=== PATIENT | female | born 1960 | race Caucasian/White ===

== ENCOUNTER 2019-07-20 22:05 | Inpatient (IN) ==
[2019-07-20] MEDS ORDERED: NS 1000 ML 1,000 ML IV SCH (23:45)
--- NOTE | 2019-07-20 23:52 | DR.HI ---
HPI - Time Seen Time seen: 23:48 - PCP Primary Care Physician: MENDY - HPI Comment HPI Comment: Patient states she has been falling all day. States she gets swimmy headed and her knees get weak and gives away and she falls. States she fell on her knees today around 5 pm 6-7 hours ago and hit the back of her head. She denies lOC or any seizure activity today but she has a history of seizures and was in the hospital in [place] two months ago. She has had stents placed in [place] by Dr. Moreno in 2019. She smokes one pack cigarettes daily and denies alcohol or tobacco use. State she feel like she has dizziness and feel clammy and fells like her blood pressure drops out before she falls. states she took her blood pressure before an episode of falling and it was 77/44. States she tried to talk with Dr. Mendy MENDOZA but they always give her another pill. She is out of her Keppra and when she went for a refill they told her she did not need it anymore.. states she has problems with anxiety and stress. Family states she fell earlier today when a family member was helping her walk and her legs gave out and she fell. - Complaint Chief Complaint:: PT VALENTINA STATED PT HAS BEEN FALLEN TWICE TODAY WITHOUT NOTICE. WHEN FALLEN PT STATED SHE HIT HER HEAD ON CEMENT DURING THE FALL. PT C/O HEADACHE AND BACK PAIN. - Reviewed Nurses Notes Review: Yes - Source History Provided: Patient - Mode of arrival Mode of Arrival: Wheelchair - Timing Onset of Chief Complaint: 07/20/19 - Context Mechanism:: Fall Symptoms:: Confusion History of:: None Last tetanus: Unknown Prehospital Care:: None - Severity Pain Severity: Mild - Location Location: Occipatal - Associated signs and symptoms Associated signs and symptoms: None PMH - PMH Past Medical History: Yes Past Medical History: Anxiety, Hypertension Past Surgical History: Yes Surgical History: Cholecystectomy Past Surgical History Comment: HEART STENT, BREAST AUGEMENTATION AND CARPEL TUNNEL SURGERY BILATERAL WRIST. - Family History History of Family Medical Conditions: No - Social History Does patient currently use any type of tobacco product: Yes Have you used tobacco products in the last 12 months: Yes Type of Tobacco Use: Cigarettes Does any household member use tobacco: Yes Alcohol Use: None Do you use any recreational Drugs:: No Lives With: Family Lives Where: Home - infectious screening In the last 2 months have you had wt loss of >10#?: NO Have you had fever, night sweats or hemotysis?: No Have you traveled outside the country in the last 6 months?: No Isolation: Standard ROS - Review of Systems Constitutional: No Symptoms Reported Eyes: No Symptoms Reported ENTM: No Symptoms Reported Respiratoy: No Symptoms Reported Cardiovascular: No Symptoms Reported. negative: See HPI, Chest Pain, Edema, Palpitations, Syncope, Cyanosis, Skin Mottling, Other Gastrointestinal/Abdominal: No Symptoms Reported Genitourinary: No Symptoms Reported Neurological: No Symptoms Reported, Seizure, Problems Walking (legs give way when she walks) Musculoskeletal: No Symptoms Reported Integumentary: No Symptoms Reported Hematologic/Lymphatic: No Symptoms Reported Endocrine: No Symptoms Reported Psychiatric: No Symptoms Reported. negative: See HPI, Anxiety, Depression, Hallucinations, Excessive crying, Suicidal, Other PE - General Limitations: No Limitations General Appearance: Alert, In Distress (slight) - Head Head Exam: Normal Inspection, Atraumatic, Normocephalic Head Exam Physical: negative: Laceration, Abrasion, Contusion, Hematoma, Raccoon Eyes, Batron's Sign, Tenderness of Temporal Artery, CSF Rhinorrhea, CSF Otorrhea, Other - Eyes Eye exam: Normal Appearance, PERRL, EOMI. negative: Scleral Icterus, Conjuncti stanislaw Injection, Nystagmus, Miosis, Mydrasis, Periorbital Swelling, Periorbital Tenderness, Other Eyelids: Normal Inspection: Bilateral Pupils: Regular, Round: Bilateral Sclera/Conjunctival: Normal Inspection: Bilateral - ENT ENT Exam: Normal Exam, Normal Oropharynx, Normal External Ear Exam, Mucous Membranes Moist, TM's Normal Bilaterally Nose Exam: Normal Nose Exam Mouth Exam: Normal Inspection - Neck Neck Exam: Normal Inspection, Full ROM, Trachea Midline - Respiratory Respiratory Exam: Normal Lung Sounds Bilat Respiratory Exam: Bilateral Clear to Auscultation - Cardiovascular Cardiovascular Exam: Regular Rate, Normal Rhythm, Normal Heart Sounds - Abdominal Exam Abdominal Exam: Normal Inspection, Normal Bowel Sounds, Soft. negative: Distention, Tenderness, Guarding, Rebound, Rigidity, Dimnished Bowel Sounds, Hyperactive Bowel Sounds, Hypoactive Bowel Sounds, Organomegaly, Trauma, Incision, Ascites, Mass, Bruit, Pulsatile Mass, Hernia, Other Abdominal Tenderness: negative: RUQ, RLQ, LUQ, LLQ, Epigastrium, Suprapubic, Diffuse, Mild, Moderate, Severe, Other - Extremities Extremities Exam: Normal Inspection, Full ROM, Tenderness (right knee tender), Normal Capillary Refill - Back Back Exam: Normal Inspection, Full ROM - Neurologic Neurological Exam: Alert, Oriented X3, CN II-XII Intact, Reflexes Normal. negative: Normal Gait (gait not tested) - Psychiatric Psychiatric Exam: Normal Affect, Normal Mood - Skin Skin Exam: Warm, Dry, Intact, Normal Color Type of Lesion: negative: Rash, Abscess, Laceration, Foreign Body, Bite/Sting, Abrasion, Other Distribution: negative: Generalized, Involves Palms/Soles, Head, Face, Neck, Thorax, Chest, Back, Abdomen, Genitals, LUE, LLE, RUE, RLE, Other Description: negative: Size, Tenderness, Erythematous, Swelling, Macular, Papular, Vesicular, Blisters, Cofluent, Bullous, Petechial, Purpuric, Urti carial, Crusting, Discharge, Fluctuant, Indurated, Other - Vital Signs Vitals: Temperature 97.9 F Pulse Rate 67 Respiratory Rate 20 Blood Pressure 122/62 O2 Sat by Pulse Oximetry 96 Course - Consultation Called: 01:59 Call Returned: 01:59 (Dr. Dunlap to admit. [facility] give Lovenox.) - Education/Counseling Education/Counseling: Patient, Family Educated On: Treatment, Diagnosis, Needs for Follow Up ROR - Labs Reviewed Laboratory Results Reviewed?: Yes (All labs and x-ray results reviewed and discussed with patient and family) Result Diagrams: 07/21/19 00:05 07/21/19 00:05 - XRAY XRAY Interpreted by: Radiologist (CT head: No acute intracranial abnormality) XRAY Findings: CT lumbar spine: No acute osseous abnormality of the lumbar spine. - EKG Rate: 70 [place]: Normal Rhythm: NSR Block: None Hypertrophy: None ST: Old, Ant, Infarct, Nonsp - Labs Reviewed Laboratory: WBC 13.5 X10^3/uL (3.6-10.0) H 07/21/19 00:05 RBC 3.59 X10^6/uL (3.5-5.4) 07/21/19 00:05 Hgb 10.6 g/dL (12.0-16.0) L 07/21/19 00:05 Hct 30.9 % (36.0-47.0) L 07/21/19 00:05 MCV 86.2 fL (80.0-100.0) 07/21/19 00:05 MCH 29.7 pg (27.0-34.0) 07/21/19 00:05 MCHC 34.4 g/dL (33.0-35.0) 07/21/19 00:05 RDW 14.6 % (11.6-16.5) 07/21/19 00:05 Plt Count 384 X10^3/uL (150.0-450.0) 07/21/19 00:05 MPV 7.0 fL (7.4-11.0) L 07/21/19 00:05 Neut % (Auto) 82.0 % (42.0-75.0) H 07/21/19 00:05 Lymph % (Auto) 9.5 % (21.0-51.0) L 07/21/19 00:05 [place] % (Auto) 4.3 % (0.0-13.0) 07/21/19 00:05 Eos % (Auto) 4.0 % (0.9-2.9) H 07/21/19 00:05 Baso % (Auto) 0.2 % (0.2-1.0) 07/21/19 00:05 Neut # (Auto) 11.1 x10^3/uL (2.2-4.8) H 07/21/19 00:05 Lymph # (Auto) 1.3 X10^3/uL (1.3-2.9) 07/21/19 00:05 [place] # (Auto) 0.6 x10^3/uL (0.3-0.8) 07/21/19 00:05 Eos # (Auto) 0.5 x10^3/uL (0.0-0.2) H 07/21/19 00:05 Baso # (Auto) 0.0 X10^3/uL (0.0-0.1) 07/21/19 00:05 Absolute Nucleated RBC 0.0 /100WBC 07/21/19 00:05 PT 12.7 SECONDS (11.8-14.3) 07/21/19 00:05 INR Target Range - 07/21/19 00:05 INR 0.99 (0.8-1.3) 07/21/19 00:05 APTT 38.2 SECONDS (22.9-36.5) H 07/21/19 00:05 PTT Comment - 07/21/19 00:05 D-Dimer 508 ng/mL (0-400) H* 07/21/19 00:05 Sodium 126 mmol/L (136-145) L 07/21/19 00:05 Corrected Sodium TNP 07/21/19 00:05 Potassium 2.6 mmol/L (3.5-5.1) L* 07/21/19 00:05 Chloride 87 mmol/L (98-107) L 07/21/19 00:05 Carbon Dioxide 28.4 mmol/L (21-32) 07/21/19 00:05 BUN 22 mg/dL (7-18) H 07/21/19 00:05 Creatinine 1.42 mg/dL (0.55-1.02) H 07/21/19 00:05 Est GFR (MDRD) Af Amer 49 (>60) L 07/21/19 00:05 Est GFR (MDRD) Non-Af 40 (>60) L 07/21/19 00:05 Glucose 110 mg/dL (65-99) H 07/21/19 00:05 Calcium 8.8 mg/dL (8.5-10.1) 07/21/19 00:05 Corrected Calcium TNP 07/21/19 00:05 Magnesium 1.8 mg/dL (1.7-2.9) 07/21/19 00:05 Total Bilirubin 0.40 mg/dL (0.2-1.0) 07/21/19 00:05 AST 17 Units/L (15-37) 07/21/19 00:05 ALT 14 Units/L (12-78) 07/21/19 00:05 Alkaline Phosphatase 145 Units/L (46-116) H 07/21/19 00:05 Creatine Kinase 79 Units/L (26-192) 07/21/19 00:05 CK-MB (CK-2) < 1.0 ng/mL (0-4.0) 07/21/19 00:05 CK/CKMB % Calc 1.3 % (<4) 07/21/19 00:05 Troponin I < 0.02 ng/mL (0-1.5) 07/21/19 00:05 Total Protein 7.8 g/dL (6.4-8.2) 07/21/19 00:05 Albumin 3.5 g/dL (3.4-5.0) 07/21/19 00:05 Globulin 4.3 g/dL (2.5-4.5) 07/21/19 00:05 Albumin/Globulin Ratio 0.8 Ratio (1.1-2.1) L 07/21/19 00:05 Opioid - Opioid Risk Tool Total: 0 Total Score Risk Category: Low Risk - Diagnosis Discharge Problem: Hypokalemia, Hyponatremia, Syncope and collapse, Dehydration Fall at home Qualifiers: Encounter type: initial encounter Qualified Code(s): W19.XXXA - Unspecified fall, initial encounter Altered mental state Qualifiers: Altered mental status type: unspecified Qualified Code(s): R41.82 - Altered mental status, unspecified Chronic kidney disease (CKD) Qualifiers: Chronic kidney disease stage: stage 3 (moderate) Qualified Code(s): N18.3 - Chronic kidney disease, stage 3 (moderate) - Discharge Plan Disposition: ADMITTED INPATIENT Condition: Stable - Follow ups/Referrals Follow ups/Referrals: PATRICK BROOKE [Primary Care Provider] - 3 days - Instructions
[2019-07-21 00:21] LABS: BASOPHILS % (AUTO) 0.2 % (0.2-1.0); EOSINOPHILS # (AUTO) 0.5 x10^3/uL (0.0-0.2); HEMATOCRIT 30.9 % (36.0-47.0); HEMOGLOBIN 10.6 g/dL (12.0-16.0); LYMPHOCYTES # (AUTO) 1.3 X10^3/uL (1.3-2.9); LYMPHOCYTES % (AUTO) 9.5 % (21.0-51.0); MEAN CORPUSCULAR HEMOGLOBIN 29.7 pg (27.0-34.0); MEAN CORPUSCULAR HGB CONC 34.4 g/dL (33.0-35.0); MEAN CORPUSCULAR VOLUME 86.2 fL (80.0-100.0); MONOCYTES # (AUTO) 0.6 x10^3/uL (0.3-0.8); MONOCYTES % (AUTO) 4.3 % (0.0-13.0); NEUTROPHILS # (AUTO) 11.1 x10^3/uL (2.2-4.8); PLATELET COUNT 384 X10^3/uL (150.0-450.0); RED BLOOD COUNT 3.59 X10^6/uL (3.5-5.4); RED CELL DISTRIBUTION WIDTH 14.6 % (11.6-16.5); WHITE BLOOD COUNT 13.5 X10^3/uL (3.6-10.0)
[2019-07-21 00:35] LABS: ALANINE AMINOTRANSFERASE 14 Units/L (12-78); ALBUMIN 3.5 g/dL (3.4-5.0); ALKALINE PHOSPHATASE 145 Units/L (46-116); ASPARTATE AMINO TRANSFERASE 17 Units/L (15-37); BLOOD UREA NITROGEN 22 mg/dL (7-18); CALCIUM 8.8 mg/dL (8.5-10.1); CARBON DIOXIDE 28.4 mmol/L (21-32); CHLORIDE 87 mmol/L (98-107); CKMB % 1.3 % (<4); CREATINE KINASE 79 Units/L (26-192); CREATINE KINASE MB < 1.0 ng/mL (0-4.0); CREATININE 1.42 mg/dL (0.55-1.02); MAGNESIUM 1.8 mg/dL (1.7-2.9); SODIUM 126 mmol/L (136-145); TOTAL PROTEIN 7.8 g/dL (6.4-8.2); TROPONIN I < 0.02 ng/mL (0-1.5); eGFR NON BLACK RACES 40 (>60)
--- NOTE | 2019-07-21 00:40 | CT ---
CT head without contrast Indication: Fall, headache Comparison: None Technique: CT images of the head were obtained without contrast. Automatic exposure control was utilized. Findings: The study is mildly motion degraded. There is no acute bleed, mass effect, or abnormal extra-axial collection. The ventricles are symmetric and nondilated. No acute calvarial fracture identified. The visualized paranasal sinuses and mastoid air cells are clear. Impression: No acute intracranial abnormality. Reported By:
--- NOTE | 2019-07-21 00:41 | CT ---
CT lumbar spine without contrast Indication: Fall, back pain Comparison: None Technique: CT images of the lumbar spine were obtained without contrast. Automatic exposure control was utilized. Findings: There is minimal anterolisthesis of L3 on L4. The spine alignment is otherwise normal. There is multilevel discogenic and facet degenerative change. There is posterior disc bulge at L3-4 and L4-5, contributing to moderate spinal canal narrowing. No acute fracture or subluxation identified. The paraspinous soft tissues are grossly unremarkable. Impression: No acute osseous abnormality of the lumbar spine. Multilevel spine degenerative change. Moderate spinal canal narrowing at L3-4 and L4-5. Reported By:
[2019-07-21] MEDS ORDERED: NS 1000 ML 1,000 ML IV ONE (00:43)
--- NOTE | 2019-07-21 00:56 | RAD ---
Chest, 1 view Indication: Fall Comparison: None Findings: The cardiac and mediastinal contours are within normal limits. The lungs are grossly clear without focal infiltrates or pleural effusion. No pneumothorax identified. No displaced fracture. Impression: No acute chest process. Reported By:
[2019-07-21] MEDS: K-LYTE EFFERVESCENT PO SCH ×2 (01:10→13:16)
[2019-07-21] MEDS ORDERED: MORPHINE SULFATE INJ 2 MG INJ IVP ONE (01:36)
[2019-07-21] MEDS ORDERED: ZOFRAN INJ 4 MG VIAL IVP ONE (01:37)
[2019-07-21] MEDS ORDERED: LOVENOX INJ 80 MG SYR SC STA (01:37)
[2019-07-21] MEDS ORDERED: LOVENOX INJ 80 MG SYR SC ONE (02:15)
[2019-07-21] MEDS ORDERED: MORPHINE SULFATE INJ 2 MG INJ ONE (02:16)
[2019-07-21] MEDS ORDERED: ZOFRAN INJ 4 MG VIAL ONE (02:17)
[2019-07-21 04:22] VITALS: BMI 33.5
[2019-07-21 06:52] LABS: BASOPHILS % (AUTO) 0.5 % (0.2-1.0); EOSINOPHILS # (AUTO) 0.6 x10^3/uL (0.0-0.2); EOSINOPHILS % (AUTO) 5.9 % (0.9-2.9); HEMATOCRIT 29.4 % (36.0-47.0); HEMOGLOBIN 10.3 g/dL (12.0-16.0); LYMPHOCYTES # (AUTO) 1.4 X10^3/uL (1.3-2.9); LYMPHOCYTES % (AUTO) 13.9 % (21.0-51.0); MEAN CORPUSCULAR HEMOGLOBIN 30.1 pg (27.0-34.0); MEAN CORPUSCULAR HGB CONC 35.2 g/dL (33.0-35.0); MEAN CORPUSCULAR VOLUME 85.3 fL (80.0-100.0); MEAN PLATELET VOLUME 6.6 fL (7.4-11.0); MONOCYTES # (AUTO) 0.4 x10^3/uL (0.3-0.8); MONOCYTES % (AUTO) 4.2 % (0.0-13.0); NEUTROPHILS # (AUTO) 7.6 x10^3/uL (2.2-4.8); NEUTROPHILS % (AUTO) 75.5 % (42.0-75.0); PLATELET COUNT 378 X10^3/uL (150.0-450.0); RED BLOOD COUNT 3.44 X10^6/uL (3.5-5.4); RED CELL DISTRIBUTION WIDTH 14.5 % (11.6-16.5)
[2019-07-21 07:06] LABS: CHOL/HDL RATIO 2.9 (0.0-5.0)
[2019-07-21 07:08] LABS: ALANINE AMINOTRANSFERASE 13 Units/L (12-78); ALKALINE PHOSPHATASE 127 Units/L (46-116); ASPARTATE AMINO TRANSFERASE 17 Units/L (15-37); BLOOD UREA NITROGEN 18 mg/dL (7-18); CALCIUM 8.5 mg/dL (8.5-10.1); CARBON DIOXIDE 28.6 mmol/L (21-32); CHLORIDE 92 mmol/L (98-107); COR CA(FOR HYPOALB) 9.3 mg/dL (8.5-10.1); SODIUM 130 mmol/L (136-145); TOTAL PROTEIN 6.8 g/dL (6.4-8.2); eGFR NON BLACK RACES 54 (>60)
[2019-07-21] MEDS: NS + KCL 20 MEQ/L 1,000 ML IV SCH ×3 (09:45→19:15)
[2019-07-21] MEDS ORDERED: NORCO 10/325 TAB PO PRN (11:34)
[2019-07-21] MEDS ORDERED: NORCO 10/325 TAB ONE (11:36)
--- NOTE | 2019-07-21 11:47 | DR.H&P ---
H&P History & Physical for Day of: H&P Date: 07/21/19 Chief Complaint Chief Complaint: Recurrent falls, Syncope Allergies Allergies Allergy/AdvReac Type Severity Reaction Status Date / Time ketorolac [From Toradol] Allergy Verified 07/20/19 22:32 History of Present Illness History of Present Illness: Pt is a 58 yo f w/ hx of recurrent falls and syncopal episodes for the past 2 months. Reports episodes are during activity. She will start feeling "swimmy headed" and her knees get weak and gives away. Yesterday she she fell on her knees and hit the back of her head. Denied LOC or any seizure activity, however reports recently started on seizure medication last 2 months ago at [facility] for similar event but was discontinued by her pcp. Per ED, pt took her blood pressure medication shortly before episode and was hypotensive. Denies incontinence or seizure like activity during event. Past Medical History Past Medical History: Anxiety and Hypertension Past Surgical History Surgical History: Angioplasty/Stents, Cholecystectomy and Other Family History Family Medical History: [place], Coronary Artery Disease and Hypertension Social History Does patient currently use any type of tobacco product: Yes Have you used tobacco products in the last 12 months: Yes Type of Tobacco Use: Cigarettes How many years tobacco product used: 39 Does any household member use tobacco: No Alcohol Use: None Drug Use: None Medications Home Medications: ketorolac [From Toradol] Allergy (Verified 07/20/19 22:32) CONTINUE taking the following medications aspirin [Aspir-81] 81 mg PO DAILY 07/20/19 [History] bupropion HCl [Wellbutrin SR] 150 mg PO BID 07/20/19 [History] cyclobenzaprine 10 mg PO PRN PRN 07/20/19 [History] doxepin 50 mg PO PRN PRN 07/20/19 [History] esomeprazole magnesium 40 mg PO DAILY 07/20/19 [History] gabapentin 800 mg PO TID 07/20/19 [History] hydrochlorothiazide 25 mg PO DAILY 07/20/19 [History] hydrocodone-acetaminophen [[place]] 1 tab PO QID 07/20/19 [History] hydroxyzine HCl 25 mg PO TID 07/20/19 [History] levetiracetam 750 mg PO BID 07/20/19 [History] loratadine 10 mg PO DAILY 07/20/19 [History] losartan 50 mg PO DAILY 07/20/19 [History] meclizine 25 mg PO TID 07/20/19 [History] promethazine 25 mg PO BID 07/20/19 [History] sertraline 50 mg PO DAILY 07/20/19 [History] simvastatin 20 mg PO HS 07/20/19 [History] ticagrelor [Brilinta] 90 mg PO DAILY 07/20/19 [History] vitamin E 400 unit PO DAILY 07/20/19 [History] Labs Result Diagrams: 07/21/19 06:34 07/21/19 06:34 Labs: Laboratory WBC 10.0 X10^3/uL (3.6-10.0) 07/21/19 06:34 RBC 3.44 X10^6/uL (3.5-5.4) L 07/21/19 06:34 Hgb 10.3 g/dL (12.0-16.0) L 07/21/19 06:34 Hct 29.4 % (36.0-47.0) L 07/21/19 06:34 MCV 85.3 fL (80.0-100.0) 07/21/19 06:34 MCH 30.1 pg (27.0-34.0) 07/21/19 06:34 MCHC 35.2 g/dL (33.0-35.0) H 07/21/19 06:34 RDW 14.5 % (11.6-16.5) 07/21/19 06:34 Plt Count 378 X10^3/uL (150.0-450.0) 07/21/19 06:34 MPV 6.6 fL (7.4-11.0) L 07/21/19 06:34 Neut % (Auto) 75.5 % (42.0-75.0) H 07/21/19 06:34 Lymph % (Auto) 13.9 % (21.0-51.0) L 07/21/19 06:34 [place] % (Auto) 4.2 % (0.0-13.0) 07/21/19 06:34 Eos % (Auto) 5.9 % (0.9-2.9) H 07/21/19 06:34 Baso % (Auto) 0.5 % (0.2-1.0) 07/21/19 06:34 Neut # (Auto) 7.6 x10^3/uL (2.2-4.8) H 07/21/19 06:34 Lymph # (Auto) 1.4 X10^3/uL (1.3-2.9) 07/21/19 06:34 [place] # (Auto) 0.4 x10^3/uL (0.3-0.8) 07/21/19 06:34 Eos # (Auto) 0.6 x10^3/uL (0.0-0.2) H 07/21/19 06:34 Baso # (Auto) 0.0 X10^3/uL (0.0-0.1) 07/21/19 06:34 Absolute Nucleated RBC 0.0 /100WBC 07/21/19 06:34 PT 12.7 SECONDS (11.8-14.3) 07/21/19 00:05 INR Target Range - 07/21/19 00:05 INR 0.99 (0.8-1.3) 07/21/19 00:05 APTT 38.2 SECONDS (22.9-36.5) H 07/21/19 00:05 PTT Comment - 07/21/19 00:05 D-Dimer 508 ng/mL (0-400) H* 07/21/19 00:05 Sodium 130 mmol/L (136-145) L 07/21/19 06:34 Corrected Sodium TNP 07/21/19 06:34 Potassium 3.0 mmol/L (3.5-5.1) L* 07/21/19 06:34 Chloride 92 mmol/L (98-107) L 07/21/19 06:34 Carbon Dioxide 28.6 mmol/L (21-32) 07/21/19 06:34 BUN 18 mg/dL (7-18) 07/21/19 06:34 Creatinine 1.10 mg/dL (0.55-1.02) H 07/21/19 06:34 Est GFR (MDRD) Af Amer > 60 (>60) 07/21/19 06:34 Est GFR (MDRD) Non-Af 54 (>60) L 07/21/19 06:34 Glucose 93 mg/dL (65-99) 07/21/19 06:34 Calcium 8.5 mg/dL (8.5-10.1) 07/21/19 06:34 Corrected Calcium 9.3 mg/dL (8.5-10.1) 07/21/19 06:34 Magnesium 1.8 mg/dL (1.7-2.9) 07/21/19 00:05 Total Bilirubin 0.30 mg/dL (0.2-1.0) 07/21/19 06:34 AST 17 Units/L (15-37) 07/21/19 06:34 ALT 13 Units/L (12-78) 07/21/19 06:34 Alkaline Phosphatase 127 Units/L (46-116) H 07/21/19 06:34 Creatine Kinase 79 Units/L (26-192) 07/21/19 00:05 CK-MB (CK-2) < 1.0 ng/mL (0-4.0) 07/21/19 00:05 CK/CKMB % Calc 1.3 % (<4) 07/21/19 00:05 Troponin I < 0.02 ng/mL (0-1.5) 07/21/19 00:05 Total Protein 6.8 g/dL (6.4-8.2) 07/21/19 06:34 Albumin 3.0 g/dL (3.4-5.0) L 07/21/19 06:34 Globulin 3.8 g/dL (2.5-4.5) 07/21/19 06:34 Albumin/Globulin Ratio 0.8 Ratio (1.1-2.1) L 07/21/19 06:34 Triglycerides 74 mg/dL (0-150) 07/21/19 06:34 Cholesterol 138 mg/dL (0-200) 07/21/19 06:34 LDL Cholesterol, Calc 76 mg/dL (0-100) 07/21/19 06:34 HDL Cholesterol 47 mg/dL (40-60) 07/21/19 06:34 Cholesterol/HDL Ratio 2.9 (0.0-5.0) 07/21/19 06:34 Review of Systems Constitutional: Weakness; denies Fever and Sweats Eyes: No Symptoms Reported ENT: No Symptoms Reported Respiratory: No Symptoms Reported Cardiovascular: No Symptoms Reported Gastrointestinal: No Symptoms Reported Genitourinary: No Symptoms Reported Musculoskeletal: Back Pain Skin: No Symptoms Reported Neurological: Weakness; denies Change in Speech Physical Exam Vital Signs: Temperature 99.2 F Pulse Rate [Left Brachial] 73 Pulse Rate [Brachial] 77 Pulse Rate 67 Respiratory Rate 18 Blood Pressure [Left Arm] 107/54 Blood Pressure 122/62 O2 Sat by Pulse Oximetry 96 Oriented: Normal Eyes: Normal Ear: Normal Nose: Normal Respiratory: RLL Exp. Wheeze, LLL Exp. Wheeze, RLL Squeak and LLL Squeak Cardiovascular: Normal : Normal Auscultation: Bowel Sounds: Normal Palpation: Normal Tenderness: Normal Skin: Normal Musculoskeletal: Normal Psychiatric: Normal Mood Description: Calm Speech Pattern: Clear Assessment/Plan (1) Syncope and collapse: Status: Acute Plan: Neuro checks q6h, Orthostatic vitals, CT head-negative, Will need to review home medications. Possibly medication related in combination with electrolyte abnormalities. Continue to monitor. (2) Acute renal failure: Qualifiers: Acute renal failure type: unspecified Qualified Code(s): N17.9 - Acute kidney failure, unspecified Status: Acute Plan: IVF hydration. Cr:1.42>1.10 (3) Hyponatremia: Status: Acute Plan: IVF hydration to correct. Na: 126>130; Trend daily (4) Hypokalemia: Status: Acute Plan: K:2.6>3.0; replace per protocol (5) Elevated d-dimer: Status: Acute Plan: D-dimer 508. Will get CTA chest to r/o PE d/t syncopal events. (6) Dehydration: Status: Acute Plan: IVF hydration
--- NOTE | 2019-07-21 13:12 | CT ---
CT CHEST WITH IV CONTRAST - PE PROTOCOL HISTORY: Elevated D-dimer Comparison: None Technique: Non gated axial images of the chest were obtained with intravenous contrast according to pulmonary embolism protocol. MIPS were reconstructed. Dose reduction techniques including Automated Exposure Control (AEC) and adjustment of mA and kV were utlized. Findings: Examination is significantly limited by poor contrast bolus timing and poor calcified in of the distal pulmonary arteries. No evidence of a pulmonary embolism to the level of the proximal lobar pulmonary arteries. The heart is normal in size. No pericardial effusion. [place] mediastinal lymph nodes are present nonpathologic in its bilateral spectral breast in its. Severe coronary calcification. Diffuse, prior the upper lobe grade nodularity in a peribronchovascular distribution. Airways are patent. No suspicious pulmonary nodules or masses. Limited images of the upper abdomen are unremarkable. No aggressive osseous lesions. IMPRESSION: 1. Limited examination without evidence of large pulmonary embolism. Smaller more distal pulmonary emboli can't be excluded by this examination. 2. Upper lungs are ground-glass in a peribronchovascular/perilymph distribution. Differential considerations include chronic hypersensitivity pneumonitis, atypical pneumonia, chronic eosinophilic pneumonia . Correlate clinically and with any available priors.e Reported By:
[2019-07-21] MEDS: NORCO 10/325 TAB PO SCH ×4 (13:27→20:26)
[2019-07-21] MEDS ORDERED: BRILINTA PO ONE (13:29)
[2019-07-21] MEDS ORDERED: WELLBUTRIN SR 150 MG (BID) PO ONE (13:29)
[2019-07-21] MEDS ORDERED: NexIUM ONE (13:29)
[2019-07-21] MEDS ORDERED: ZOLOFT PO ONE (13:29)
[2019-07-21] MEDS ORDERED: ASPIRIN 81 MG CHEWTAB ONE (13:30)
[2019-07-21] MEDS ORDERED: ZITHROMAX TAB 250 MG PO ONE (13:36)
[2019-07-21] MEDS: ZOLOFT PO SCH (13:52)
[2019-07-21] MEDS: NexIUM PO SCH (13:52)
[2019-07-21] MEDS: ASPIRIN EC 81 MG PO SCH (13:53)
[2019-07-21] MEDS: BRILINTA PO SCH (13:53)
[2019-07-21] MEDS: PREDNISONE TAB 20 MG PO SCH (14:09)
--- NOTE | 2019-07-21 16:02 | VAS ---
HISTORY: Leg pain, elevated D-dimer Study: Venous Doppler Comparison: None TECHNIQUE: Multiple espinosa scale and color flow Doppler images of the deep venous system were obtained of the bilateral lower extremities FINDINGS: There is normal respiratory phasicity, compression and augmentation of the extremity veins without evidence of acute DVT. IMPRESSION: 1. Negative for DVT. Reported By:
[2019-07-21] MEDS: DUONEB 0.5 MG/3 MG NEB SCH ×2 (16:36→21:59)
[2019-07-21] MEDS: ZOCOR TAB 20 MG PO SCH (20:26)
[2019-07-21] MEDS: WELLBUTRIN SR 150 MG (BID) PO SCH (20:26)
[2019-07-22] MEDS: NS + KCL 20 MEQ/L 1,000 ML IV SCH ×2 (05:16→13:57)
[2019-07-22 05:30] LABS: BASOPHILS % (AUTO) 0.1 % (0.2-1.0); BLOOD UREA NITROGEN 11 mg/dL (7-18); CALCIUM 8.9 mg/dL (8.5-10.1); CARBON DIOXIDE 27.8 mmol/L (21-32); CHLORIDE 99 mmol/L (98-107); COR NA(FOR HYPERGLY) 137 mmol/L (136-145); CREATININE 0.86 mg/dL (0.55-1.02); EOSINOPHILS % (AUTO) 0.3 % (0.9-2.9); HEMATOCRIT 29.9 % (36.0-47.0); LYMPHOCYTES # (AUTO) 1.1 X10^3/uL (1.3-2.9); LYMPHOCYTES % (AUTO) 7.7 % (21.0-51.0); MAGNESIUM 1.8 mg/dL (1.7-2.9); MEAN CORPUSCULAR HEMOGLOBIN 29.5 pg (27.0-34.0); MEAN CORPUSCULAR HGB CONC 33.6 g/dL (33.0-35.0); MEAN CORPUSCULAR VOLUME 87.9 fL (80.0-100.0); MEAN PLATELET VOLUME 7.3 fL (7.4-11.0); MONOCYTES # (AUTO) 0.5 x10^3/uL (0.3-0.8); MONOCYTES % (AUTO) 3.7 % (0.0-13.0); NEUTROPHILS # (AUTO) 12.9 x10^3/uL (2.2-4.8); NEUTROPHILS % (AUTO) 88.2 % (42.0-75.0); PLATELET COUNT 408 X10^3/uL (150.0-450.0); RED CELL DISTRIBUTION WIDTH 14.6 % (11.6-16.5); SODIUM 136 mmol/L (136-145); WHITE BLOOD COUNT 14.6 X10^3/uL (3.6-10.0); eGFR NON BLACK RACES > 60 (>60)
[2019-07-22] MEDS: DUONEB 0.5 MG/3 MG NEB SCH ×4 (09:25→20:54)
--- NOTE | 2019-07-22 10:02 | PCM.PROG ---
Progress Note Progress Note for Day of Date of Exam: 07/22/19 Subjective Subjective: Pt is a 58 yo f w/ hx of recurrent falls and syncopal episodes for the past 2 months. Reports episodes are during activity. She will start feeling "swimmy headed" and her knees get weak and gives away. Yesterday she she fell on her knees and hit the back of her head. Denied LOC or any seizure activity, however reports recently started on seizure medication last 2 months ago at [facility] for similar event but was discontinued by her pcp. Per ED, pt took her blood pressure medication shortly before episode and was hypotensive. Denies incontinence or seizure like activity during event. -Pt feeling better this morning. Orthostatics negative. Reported some dizziness yesterday but not like before. No acute events overnight. Past Medical Family Social History Past Med/Fam/Surg Hx: No changes since H&P Allergies: Allergies ketorolac [From Toradol] Allergy (Verified 07/20/19 22:32) Review of Systems ROS: No change since H&P Vital Signs and I&O's Vital Signs: Temperature 97.8 F Pulse Rate [Left Brachial] 70 Pulse Rate [Brachial] 72 Pulse Rate 66 Respiratory Rate 18 Blood Pressure [Left Arm] 122/63 Blood Pressure 122/62 O2 Sat by Pulse Oximetry 99 Intake and Output: Intake & Output 07/19/19 07/20/19 07/21/19 07/22/19 23:59 23:59 23:59 23:59 Intake Total 1800 / 1800 720 / 720 Balance 1800 / 1800 720 / 720 Physical Exam Oriented: Normal Eyes: Normal Ear: Normal Nose: Normal Cardiovascular: Normal : Normal Auscultation: Bowel Sounds: Normal Tenderness: Normal Skin: Normal Musculoskeletal: Normal Psychiatric: Normal Mood Description: Calm Speech Pattern: Clear and Appropriate Laboratory and Diagnostics Result Diagrams: 07/22/19 04:35 07/22/19 04:35 Labs: Laboratory WBC 14.6 X10^3/uL (3.6-10.0) H 07/22/19 04:35 RBC 3.40 X10^6/uL (3.5-5.4) L 07/22/19 04:35 Hgb 10.0 g/dL (12.0-16.0) L 07/22/19 04:35 Hct 29.9 % (36.0-47.0) L 07/22/19 04:35 MCV 87.9 fL (80.0-100.0) 07/22/19 04:35 MCH 29.5 pg (27.0-34.0) 07/22/19 04:35 MCHC 33.6 g/dL (33.0-35.0) 07/22/19 04:35 RDW 14.6 % (11.6-16.5) 07/22/19 04:35 Plt Count 408 X10^3/uL (150.0-450.0) 07/22/19 04:35 MPV 7.3 fL (7.4-11.0) L 07/22/19 04:35 Neut % (Auto) 88.2 % (42.0-75.0) H 07/22/19 04:35 Lymph % (Auto) 7.7 % (21.0-51.0) L 07/22/19 04:35 Clarke % (Auto) 3.7 % (0.0-13.0) 07/22/19 04:35 Eos % (Auto) 0.3 % (0.9-2.9) L 07/22/19 04:35 Baso % (Auto) 0.1 % (0.2-1.0) L 07/22/19 04:35 Neut # (Auto) 12.9 x10^3/uL (2.2-4.8) H 07/22/19 04:35 Lymph # (Auto) 1.1 X10^3/uL (1.3-2.9) L 07/22/19 04:35 Clarke # (Auto) 0.5 x10^3/uL (0.3-0.8) 07/22/19 04:35 Eos # (Auto) 0.0 x10^3/uL (0.0-0.2) 07/22/19 04:35 Baso # (Auto) 0.0 X10^3/uL (0.0-0.1) 07/22/19 04:35 Absolute Nucleated RBC 0.0 /100WBC 07/22/19 04:35 PT 12.7 SECONDS (11.8-14.3) 07/21/19 00:05 INR Target Range - 07/21/19 00:05 INR 0.99 (0.8-1.3) 07/21/19 00:05 APTT 38.2 SECONDS (22.9-36.5) H 07/21/19 00:05 PTT Comment - 07/21/19 00:05 D-Dimer 508 ng/mL (0-400) H* 07/21/19 00:05 Sodium 136 mmol/L (136-145) 07/22/19 04:35 Corrected Sodium 137 mmol/L (136-145) 07/22/19 04:35 Potassium 3.9 mmol/L (3.5-5.1) 07/22/19 04:35 Chloride 99 mmol/L (98-107) 07/22/19 04:35 Carbon Dioxide 27.8 mmol/L (21-32) 07/22/19 04:35 BUN 11 mg/dL (7-18) 07/22/19 04:35 Creatinine 0.86 mg/dL (0.55-1.02) 07/22/19 04:35 Est GFR (MDRD) Af Amer > 60 (>60) 07/22/19 04:35 Est GFR (MDRD) Non-Af > 60 (>60) 07/22/19 04:35 Glucose 131 mg/dL (65-99) H 07/22/19 04:35 Calcium 8.9 mg/dL (8.5-10.1) 07/22/19 04:35 Corrected Calcium 9.3 mg/dL (8.5-10.1) 07/21/19 06:34 Magnesium 1.8 mg/dL (1.7-2.9) 07/22/19 04:35 Total Bilirubin 0.30 mg/dL (0.2-1.0) 07/21/19 06:34 AST 17 Units/L (15-37) 07/21/19 06:34 ALT 13 Units/L (12-78) 07/21/19 06:34 Alkaline Phosphatase 127 Units/L (46-116) H 07/21/19 06:34 Creatine Kinase 79 Units/L (26-192) 07/21/19 00:05 CK-MB (CK-2) < 1.0 ng/mL (0-4.0) 07/21/19 00:05 CK/CKMB % Calc 1.3 % (<4) 07/21/19 00:05 Troponin I < 0.02 ng/mL (0-1.5) 07/21/19 12:20 Total Protein 6.8 g/dL (6.4-8.2) 07/21/19 06:34 Albumin 3.0 g/dL (3.4-5.0) L 07/21/19 06:34 Globulin 3.8 g/dL (2.5-4.5) 07/21/19 06:34 Albumin/Globulin Ratio 0.8 Ratio (1.1-2.1) L 07/21/19 06:34 Triglycerides 74 mg/dL (0-150) 07/21/19 06:34 Cholesterol 138 mg/dL (0-200) 07/21/19 06:34 LDL Cholesterol, Calc 76 mg/dL (0-100) 07/21/19 06:34 HDL Cholesterol 47 mg/dL (40-60) 07/21/19 06:34 Cholesterol/HDL Ratio 2.9 (0.0-5.0) 07/21/19 06:34 Radiology Reviewed: Yes Plan (1) Syncope and collapse: Status: Acute Plan: -Neuro checks, Orthostatic wnl, CT head-negative, -Holding Losartan, Hydralazine. BP wnl, may consider restarting losartan at lower dose. Possibly medication related in combination with electrolyte abnormalities that have now normalized. -Continue to monitor. (2) COPD exacerbation: Status: Acute Plan: Pt w/ cough and wheezing on exam yesterday and was started on Az ithromycin and Prednisone (07/21) Improved. Continue to monitor. (3) Elevated d-dimer: Status: Acute Plan: D-dimer 508. CTA chest and U/S LE negative for PE and DVT. (4) Dehydration: Status: Acute Plan: IVF hydration (5) Acute renal failure: Status: Acute Qualifiers: Acute renal failure type: unspecified Qualified Code(s): N17.9 - Acute kidney failure, unspecified Plan: IVF hydration. Cr:1.42>1.10>0.86 (6) Hyponatremia: Status: Acute Plan: IVF hydration to correct >can discontinue today. Na: 126>130>137; Trend daily (7) Hypokalemia: Status: Acute Plan: K:2.6>3.0>3.9; replace per protocol
[2019-07-22] MEDS: ZITHROMAX TAB 250 MG PO SCH (10:04)
[2019-07-22] MEDS: K-LYTE EFFERVESCENT PO SCH (10:04)
[2019-07-22] MEDS: NexIUM PO SCH (10:05)
[2019-07-22] MEDS: WELLBUTRIN SR 150 MG (BID) PO SCH ×2 (10:05→21:05)
[2019-07-22] MEDS: ASPIRIN EC 81 MG PO SCH (10:05)
[2019-07-22] MEDS: PREDNISONE TAB 20 MG PO SCH (10:05)
[2019-07-22] MEDS: NORCO 10/325 TAB PO SCH ×4 (10:06→21:05)
[2019-07-22] MEDS: ZOLOFT PO SCH (10:06)
[2019-07-22] MEDS: BRILINTA PO SCH (10:09)
[2019-07-22] MEDS: COZAAR PO SCH (11:27)
[2019-07-22] MEDS ORDERED: NS + KCL 20 MEQ/L 1,000 ML IV ONE (12:59)
[2019-07-22] MEDS: ZOCOR TAB 20 MG PO SCH (21:06)
[2019-07-23 05:20] LABS: BASOPHILS % (AUTO) 0.2 % (0.2-1.0); EOSINOPHILS # (AUTO) 0.1 x10^3/uL (0.0-0.2); EOSINOPHILS % (AUTO) 0.5 % (0.9-2.9); HEMATOCRIT 27.9 % (36.0-47.0); HEMOGLOBIN 9.3 g/dL (12.0-16.0); LYMPHOCYTES % (AUTO) 14.8 % (21.0-51.0); MEAN CORPUSCULAR HEMOGLOBIN 29.3 pg (27.0-34.0); MEAN CORPUSCULAR HGB CONC 33.4 g/dL (33.0-35.0); MEAN CORPUSCULAR VOLUME 87.7 fL (80.0-100.0); MEAN PLATELET VOLUME 7.2 fL (7.4-11.0); MONOCYTES # (AUTO) 0.6 x10^3/uL (0.3-0.8); MONOCYTES % (AUTO) 4.2 % (0.0-13.0); NEUTROPHILS % (AUTO) 80.3 % (42.0-75.0); PLATELET COUNT 376 X10^3/uL (150.0-450.0); RED BLOOD COUNT 3.18 X10^6/uL (3.5-5.4); RED CELL DISTRIBUTION WIDTH 14.7 % (11.6-16.5); WHITE BLOOD COUNT 13.7 X10^3/uL (3.6-10.0)
[2019-07-23 05:37] LABS: BLOOD UREA NITROGEN 9 mg/dL (7-18); CALCIUM 8.6 mg/dL (8.5-10.1); CARBON DIOXIDE 26.5 mmol/L (21-32); CHLORIDE 105 mmol/L (98-107); CREATININE 0.82 mg/dL (0.55-1.02); SODIUM 139 mmol/L (136-145); eGFR NON BLACK RACES > 60 (>60)
--- NOTE | 2019-07-23 08:08 | VAS ---
History: Syncope Study: Carotid duplex ultrasound Comparison: None Findings: Images show no significant plaque formation. There is antegrade flow in the vertebral arteries. Peak systolic velocity in the right internal carotid artery is 121.3 centimeters/second and in the distal right common carotid artery is 88.2 for a ratio of 1.37. Peak systolic velocity in the left internal carotid artery is 102.5 cm per 2nd and in the distal common carotid artery is 119.1 for a ratio of 0.86. Impression: No evidence for carotid stenosis or significant plaque formation. Reported By:
[2019-07-23] MEDS: DUONEB 0.5 MG/3 MG NEB SCH ×4 (08:44→21:20)
[2019-07-23] MEDS: ASPIRIN EC 81 MG PO SCH (08:46)
[2019-07-23] MEDS: ZOLOFT PO SCH (08:47)
[2019-07-23] MEDS: K-LYTE EFFERVESCENT PO SCH (08:47)
[2019-07-23] MEDS: NexIUM PO SCH (08:48)
[2019-07-23] MEDS: WELLBUTRIN SR 150 MG (BID) PO SCH ×2 (08:49→20:13)
[2019-07-23] MEDS: NORCO 10/325 TAB PO SCH ×4 (08:50→20:13)
[2019-07-23] MEDS: BRILINTA PO SCH (08:52)
[2019-07-23] MEDS: COZAAR PO SCH (08:52)
[2019-07-23] MEDS: ZITHROMAX TAB 250 MG PO SCH (08:53)
[2019-07-23] MEDS: PREDNISONE TAB 20 MG PO SCH (10:14)
[2019-07-23] MEDS: ZOFRAN INJ 4 MG VIAL IVP PRN (11:56)
--- NOTE | 2019-07-23 15:40 | MRI ---
MRI SPINE LUMBAR WITHOUT CONTRAST CLINICAL HISTORY: 58-year-old female status post fall. COMPARISON: CT lumbar spine 07/21/2019. Technique: Multiplanar, multisequence MRI images of the lumbar spine were obtained without the administration of contrast. FINDINGS: The most caudad, fully-formed intervertebral disc will be labeled L5-S1 for the purpose of this dictation and in keeping with prior imaging. There is normal lumbar lordosis. Alignment is maintained. Vertebral body heights and marrow signal are preserved. Mild loss of disc space and signal L3-L5. Cord signal is normal. The conus medullaris is normal in signal characteristics and morphology and terminates at the L1-2 level. T11-T12: Imaged in the sagittal plane only without central canal or foraminal stenosis. T12-L1: Mild facet arthropathy and small disc bulge without central canal or foraminal stenosis. L1-L2: Small disc bulge and mild facet arthropathy without central canal or foraminal stenosis. L2-L3: Moderate asymmetric disc bulge. Right foraminal component. Moderate facet arthropathy. Canal measures 11.5 mm. Mild right subarticular recess stenosis. No foraminal stenosis. L3-L4: Central annular fissure. Large symmetric disc bulge with severe facet arthropathy. Canal measures 7.8 mm. [id number] bilateral foraminal and subarticular recess stenosis. L4-L5: Large symmetric disc bulge with a central disc protrusion. Severe facet arthropathy. Canal measures 8.2 mm. [id number] bilateral facet subarticular recess stenosis. Moderate fluid within the facet joints. L5-S1: Small symmetric disc bulge with moderate facet arthropathy without central canal or foraminal stenosis. Paraspinous soft tissues are unremarkable.. IMPRESSION: 1. No acute fracture or malalignment. 2. Multilevel disc degeneration and spondyloarthropathy as described on a level by level basis above. Reported By:
[2019-07-23] MEDS: ZOCOR TAB 20 MG PO SCH (20:13)
[2019-07-24 05:31] LABS: BASOPHILS # (AUTO) 0.1 X10^3/uL (0.0-0.1); BASOPHILS % (AUTO) 0.5 % (0.2-1.0); EOSINOPHILS # (AUTO) 0.1 x10^3/uL (0.0-0.2); EOSINOPHILS % (AUTO) 1.2 % (0.9-2.9); HEMATOCRIT 28.8 % (36.0-47.0); HEMOGLOBIN 9.7 g/dL (12.0-16.0); LYMPHOCYTES # (AUTO) 2.6 X10^3/uL (1.3-2.9); LYMPHOCYTES % (AUTO) 22.7 % (21.0-51.0); MEAN CORPUSCULAR HEMOGLOBIN 29.5 pg (27.0-34.0); MEAN CORPUSCULAR HGB CONC 33.5 g/dL (33.0-35.0); MEAN PLATELET VOLUME 6.8 fL (7.4-11.0); MONOCYTES # (AUTO) 0.7 x10^3/uL (0.3-0.8); NEUTROPHILS # (AUTO) 7.9 x10^3/uL (2.2-4.8); NEUTROPHILS % (AUTO) 69.6 % (42.0-75.0); PLATELET COUNT 379 X10^3/uL (150.0-450.0); RED BLOOD COUNT 3.28 X10^6/uL (3.5-5.4); WHITE BLOOD COUNT 11.4 X10^3/uL (3.6-10.0)
[2019-07-24 05:46] LABS: ALANINE AMINOTRANSFERASE 15 Units/L (12-78); ALBUMIN 2.9 g/dL (3.4-5.0); ALKALINE PHOSPHATASE 100 Units/L (46-116); ASPARTATE AMINO TRANSFERASE 16 Units/L (15-37); BLOOD UREA NITROGEN 11 mg/dL (7-18); CALCIUM 8.7 mg/dL (8.5-10.1); CARBON DIOXIDE 25.4 mmol/L (21-32); CHLORIDE 105 mmol/L (98-107); COR CA(FOR HYPOALB) 9.6 mg/dL (8.5-10.1); CREATININE 0.87 mg/dL (0.55-1.02); SODIUM 140 mmol/L (136-145); TOTAL PROTEIN 6.6 g/dL (6.4-8.2); eGFR NON BLACK RACES > 60 (>60)
[2019-07-24] MEDS: ZITHROMAX TAB 250 MG PO SCH (08:21)
[2019-07-24] MEDS: ASPIRIN EC 81 MG PO SCH (08:21)
[2019-07-24] MEDS: NORCO 10/325 TAB PO SCH ×2 (08:21→12:26)
[2019-07-24] MEDS: K-LYTE EFFERVESCENT PO SCH ×2 (08:21→08:26)
[2019-07-24] MEDS: PREDNISONE TAB 20 MG PO SCH (08:22)
[2019-07-24] MEDS: BRILINTA PO SCH (08:22)
[2019-07-24] MEDS: WELLBUTRIN SR 150 MG (BID) PO SCH (08:22)
[2019-07-24] MEDS: COZAAR PO SCH (08:22)
[2019-07-24] MEDS: ZOLOFT PO SCH (08:23)
[2019-07-24] MEDS: NexIUM PO SCH (08:23)
[2019-07-24] MEDS: ZOFRAN INJ 4 MG VIAL IVP PRN ×2 (09:27→15:25)
[2019-07-24] MEDS: DUONEB 0.5 MG/3 MG NEB SCH ×2 (09:52→12:12)
[2019-07-24 14:46] VITALS: BP 166/80
== END 2019-07-24 15:55 | disposition home or self-care (01) | DRG 312 ==
LOC: ER 22:20 → MED/SURG 07-21 01:52
PROVIDERS: ADMIT Family Medicine; ATTEND Internal Medicine
CPT/HCPCS: 36415; 70450; 71010; 71045; 71275; 72131; 72148; 80048; 80053; 80061; 82550; 82553; 82607; 82728; 82746; 83540; 83735; 84132; 84466; 84484; 85025; 85378; 85610; 85730; 93005; 93306; 93880; 93970; 94640; 94760; 96365; 96372; 96374; 96375; 97162; 97165; 99284; A4222; Q0144; S0106; J1650; J2270; J2405; J7030; J7512; J7620; J8499